=== PATIENT | female | born 1950 ===

== ENCOUNTER 2016-09-21 17:39 | Inpatient (IN) | payer MEDICARE, OTHER ==
[2016-09-21 17:40] VITALS: BMI 22.8
[2016-09-23 16:22] VITALS: BP 96/62; PULSE 83; RESP 20; TEMP 97.9; O2SAT 97
== END 2016-09-23 17:10 | disposition home or self-care (01) | DRG 638 ==
LOC: C.ER 17:39 → C.9E 20:39 → C.5T 22:31
PROVIDERS: ADMIT Internal Medicine; ATTEND Internal Medicine
DX: E11.65 Type 2 diabetes mellitus with hyperglycemia (principal); E87.2 Acidosis; I10 Essential (primary) hypertension; E78.00 Pure hypercholesterolemia, unspecified; K21.9 Gastro-esophageal reflux disease without esophagitis; E86.0 Dehydration; Z79.899 Other long term (current) drug therapy; Z83.3 Family history of diabetes mellitus; Z79.4 Long term (current) use of insulin